=== PATIENT | female | born 1945 | race Two or more races ===

== ENCOUNTER 2017-08-07 12:37 | Inpatient (IN) | payer MEDICARE, OTHER ==
[~2017-08-07] VITALS: Ht 157.5 cm; Wt 70.8 kg
--- NOTE | 2017-08-07 12:40 | NUR ---
MAURISIO FROM [facility] ASSISTED LIVING FOR SOB, SPO2=95% ON RA. PATIENT IS A/OX 3. BREATHING EVEN AND UNLABORED AT THIS TIME. NO DISTRESS NOTED. VITALS REMAIN STABLE. SAFETY AND COMFORT MEASURES IN PLACE. AWAITING MD ORDERS.
--- NOTE | 2017-08-07 13:05 | NUR ---
NEW IV STARTED ON RAC, 20 G. BLOOD DRAWN AND SENT TO LAB.
[2017-08-07 13:12] LABS: BASOPHILS % (AUTO) 0.4 % (0.0-2.0); EOSINOPHILS # (AUTO) 0.1 /CMM (0.0-0.7); EOSINOPHILS % (AUTO) 1.2 % (0.0-6.0); HEMATOCRIT 36 % (33-45); HEMOGLOBIN 12.6 g/dL (11.5-14.8); LYMPHOCYTES # (AUTO) 2.5 /CMM (0.8-4.8); LYMPHOCYTES % (AUTO) 44.1 % (20.0-44.0); MEAN CORPUSCULAR HEMOGLOBIN 31 PG (26.0-33.0); MEAN CORPUSCULAR HGB CONC 35 g/dl (31.0-36.0); MEAN CORPUSCULAR VOLUME 89 fL (82-100); MONOCYTES # (AUTO) 0.6 /CMM (0.1-1.30); MONOCYTES % (AUTO) 11.5 % (2.0-12.0); NEUTROPHILS # (AUTO) 2.3 /CMM (1.8-8.9); NEUTROPHILS % (AUTO) 42.8 % (43.0-81.0); PLATELET COUNT (AUTO) 178 /CMM (150-450); RDW COEFFICIENT OF VARIATION 12.3 (11.5-15.0); RED BLOOD CELL COUNT(AUTO) 4.02 MIL/uL (4.0-5.2); WHITE BLOOD COUNT (AUTO) 5.5 K/uL (4.3-11.0)
[2017-08-07 13:22] LABS: CALCIUM, SERUM 9.2 mg/dL (8.5-10.1); CARBON DIOXIDE 25 mmol/L (21-32); CHLORIDE 111 mmol/L (98-107); CREATININE 1.3 mg/dL (0.6-1.3); GLUCOSE 108 mg/dL (74-106); POTASSIUM 4.5 mmol/L (3.5-5.1); SODIUM SERUM 143 mmol/L (136-145); UREA NITROGEN, BLOOD 24 mg/dL (7-18)
[2017-08-07 13:25] LABS: INR 0.89 (0.85-1.15)
--- NOTE | 2017-08-07 13:28 | NUR ---
CALLED [employer] RIP/MOULD OPERATOR WAS PAGED.
[2017-08-07 13:30] LABS: TROPONIN I < 0.017 ng/mL (0.00-0.056)
[2017-08-07] MEDS ORDERED: ALBUTEROL FS 2.5 MG/3 ML VIAL.NEB NEB ONE (13:30)
[2017-08-07] MEDS ORDERED: methylPREDNISolone SOD SUCC 125 MG/2ML VIAL IV ONE (13:30)
[2017-08-07] MEDS ORDERED: IPRATROPIUM NEB FS 0.5 MG/2.5 ML AMPUL.NEB NEB ONE (13:30)
[2017-08-07] MEDS ORDERED: ALBUTEROL FS 2.5 MG/3 ML VIAL.NEB ONE (13:32)
[2017-08-07] MEDS ORDERED: IPRATROPIUM NEB FS 0.5 MG/2.5 ML AMPUL.NEB ONE (13:32)
[2017-08-07] MEDS ORDERED: OMEP20CA10 PO (13:33)
[2017-08-07] MEDS ORDERED: LORA10TA7 PO (13:33)
[2017-08-07] MEDS ORDERED: POTA10TA15 PO (13:33)
[2017-08-07] MEDS ORDERED: MYRBETRIQ PO (13:33)
[2017-08-07] MEDS ORDERED: DIVA500T7 PO (13:33)
[2017-08-07] MEDS ORDERED: TOPI25TA49 PO (13:33)
[2017-08-07] MEDS ORDERED: FURO-145 PO (13:33)
[2017-08-07] MEDS ORDERED: CHOL100044 PO (13:33)
[2017-08-07] MEDS ORDERED: AZIT250T13 PO (13:33)
[2017-08-07] MEDS ORDERED: ROSU5TAB PO (13:33)
[2017-08-07] MEDS ORDERED: MAGN400T26 PO (13:33)
[2017-08-07] MEDS ORDERED: DIVA250T6 PO (13:33)
[2017-08-07] MEDS ORDERED: SENN-167 PO (13:33)
[2017-08-07] MEDS ORDERED: OLAN5TAB3 PO (13:33)
[2017-08-07] MEDS ORDERED: LISI10TA5 PO (13:33)
[2017-08-07] MEDS ORDERED: methylPREDNISolone SOD SUCC 125 MG/2ML VIAL ONE (13:39)
[2017-08-07 13:41] LABS: ALANINE AMINOTRANSFERASE 12 U/L (12-78); ALBUMIN 2.9 g/dL (3.4-5.0); ALKALINE PHOSPHATASE 64 U/L (46-116); ASPARTATE AMINOTRANSFERASE 18 U/L (15-37); B-TYPE NATRIURETIC PEPTIDE 227 PG/ML (0-125); BILIRUBIN,DIRECT 0.1 mg/dL (0.0-0.2); BILIRUBIN,TOTAL 0.2 mg/dL (0.2-1.0); TOTAL PROTEIN, SERUM 7.9 g/dL (6.4-8.2)
[2017-08-07] MEDS ORDERED: LEVOFLOXACIN 750 MG /D5W 150ML 150 ML IV ONE ×2 (13:51→14:00)
--- NOTE | 2017-08-07 13:53 | NUR ---
CALLED NURSING GEODETIC SURVEY DIRECTOR REQUESTING A BED
[2017-08-07] MEDS ORDERED: MAGNESIUM OXIDE 400 MG TABLET PO SCH (15:00)
[2017-08-07] MEDS ORDERED: LISINOPRIL (10MG) 10 MG TABLET PO SCH (15:00)
[2017-08-07] MEDS ORDERED: LEVOFLOXACIN 500 MG /D5W 100ML 500 MG in PREMIX 1 EA IV SCH (15:00)
[2017-08-07] MEDS ORDERED: CHOLECALCIFEROL 1,000 UNIT TABLET (VIT D3) PO SCH (15:00)
[2017-08-07] MEDS ORDERED: LORATADINE 10 MG TABLET PO SCH (15:00)
--- NOTE | 2017-08-07 15:07 | NUR ---
REPORT GIVEN TO LAILA SMITH FOR SARAH UPON ADMISSION.
[2017-08-07 15:30] VITALS: BP 126/72
[2017-08-07] MEDS ORDERED: BLOOD SUGAR DIAGNOSTIC 1 EACH STRIP IN SCH ×2 (15:30→18:00)
[2017-08-07] MEDS ORDERED: INSULIN REGULAR, HUMAN 100 UNIT/ML 3 ML VIAL SQ PRN (15:30)
[2017-08-07] MEDS ORDERED: DEXTROSE 50%-WATER 50 ML DISP.SYRIN IV PRN (15:30)
[2017-08-07] MEDS ORDERED: ASPIRIN EC 325 MG TABLET.DR PO SCH (15:30)
[2017-08-07] MEDS ORDERED: PANTOPRAZOLE 40 MG VIAL IV SCH (15:30)
--- NOTE | 2017-08-07 15:30 | NUR ---
PATIENT TRANSPORTED TO [facility] VIA ACLS PROTOCOL. RNLAILA TO PROVIDE SARAH.
--- NOTE | 2017-08-07 15:40 | NUR ---
MS SMITH AM NOTES RECEIVED PT FROM ER WITH DX OF COPD EXACERBATION.NO C/O SOB WITH O2 AT 2L/MIN VIA N/C.PT IS ALERT AND VERBALLY RESPONSIVE.AMBULATES TO THE BRP WITH ASSIST WITH SLOW STEADY GAIT.DENIES ANY PAIN OR DISTRESS.CALL LIGHT PLACED WITHIN REACH.
[2017-08-07 15:45] VITALS: BP 125/72
[2017-08-07] MEDS ORDERED: ENOXAPARIN SODIUM 40 MG/0.4 ML DISP.SYRIN SQ SCH (16:00)
[2017-08-07] MEDS ORDERED: IV NS 0.9% 1,000 ML IV PRN (16:30)
[2017-08-07] MEDS ORDERED: ACETAMINOPHEN 325 MG TABLET PO PRN ×2 (16:30→17:30)
[2017-08-07] MEDS ORDERED: IPRATROPIUM NEB FS 0.5 MG/2.5 ML AMPUL.NEB NEB PRN ×2 (16:30→17:30)
[2017-08-07] MEDS ORDERED: ALBUTEROL FS 2.5 MG/3 ML VIAL.NEB NEB PRN ×2 (16:30→17:30)
--- NOTE | 2017-08-07 16:59 | NUR ---
PER DR. PLUMMER TO STOP ALL HIS ORDERS, PT UNDER DR. FERNANDES CARE, DR. PLUMMER WILL INFORM DR HENRY.
[2017-08-07] MEDS ORDERED: TOPIRAMATE 25 MG TABLET PO SCH (17:00)
[2017-08-07] MEDS: PANTOPRAZOLE 40 MG TABLET.DR PO SCH (17:35)
[2017-08-07] MEDS: ENOXAPARIN SODIUM 40 MG/0.4 ML DISP.SYRIN SQ SCH (17:36)
[2017-08-07] MEDS ORDERED: DIVALPROEX SODIUM 500 MG TABLET.DR PO SCH (18:00)
[2017-08-07] MEDS: IV NS 0.9% 1,000 ML IV PRN (18:23)
[2017-08-07 18:45] LABS: APPEARANCE,URINE CLEAR (CLEAR); BILIRUBIN,URINE NEGATIVE (NEGATIVE); BLOOD, URINE NEGATIVE Ery/uL (NEGATIVE); COLOR,URINE YELLOW (YELLOW); KETONES,URINE NEGATIVE (NEGATIVE); LEUKOCYTE ESTERASE ,URINE NEGATIVE (NEGATIVE); NITRITE, URINE NEGATIVE (NEGATIVE); PROTEIN,URINE NEGATIVE (NEGATIVE); UGLUCOSE NEGATIVE (NEGATIVE); UROBILINOGEN,URINE 0.2 EU/dL (0.2)
--- NOTE | 2017-08-07 18:56 | NUR ---
RN NOTE: PATIENT ALERT AND ORIENTED X 3. PATIENT IS AMBULATORY, CAN WALK TO BATHROOM WITH MINIMAL ASSISTANCE. RESPIRATIONS UNLABORED AND EVEN. IV TUBING INTACT. NO PAIN REPORTED. NO ACUTE DISTRESS. BED LOCKED, SIDE RAILS X2 UP, BED IN LOWEST POSITION FOR SAFETY.
--- NOTE | 2017-08-07 19:30 | NUR ---
MS SARAH WHEAT NOTES: PATIENT IN BED, AOX4, ON O2 AT 2 LPM VIA NC, BREATHING EVEN AND UNLABORED, NO SOB. BREATH SOUNDS CLEAR TO AUSCULTATION. PIV OVER RAC G 20 INTACT AND PATENTLY INFUSING WITH NS RUNNING AT 75 ML/HR. MAINTAINED HOB ELEVATED. PROVIDED FOR COMFORT AND SAFETY. BED IN LOWEST AND LOCKED POSITION, SIDERAILS UP X 3, CALL LIGHT WITHIN REACH. WILL CONT TO MONITOR.
[2017-08-07] MEDS: IPRATROPIUM NEB FS 0.5 MG/2.5 ML AMPUL.NEB NEB SCH (19:54)
[2017-08-07] MEDS: ALBUTEROL FS 2.5 MG/0.5 ML VIAL.NEB NEB SCH (19:54)
[2017-08-07 20:00] VITALS: BP 113/61
[2017-08-07] MEDS: methylPREDNISolone SOD SUCC 40 MG/ML VIAL IV SCH (20:52)
[2017-08-07] MEDS ORDERED: methylPREDNISolone SOD SUCC 40 MG/ML VIAL IV SCH (21:00)
[2017-08-07] MEDS ORDERED: SENNOSIDES 8.6 MG TABLET PO SCH (22:00)
[2017-08-07] MEDS ORDERED: OLANZAPINE 5 MG TABLET PO SCH (22:00)
[2017-08-08] VITALS: BP 117/62
[2017-08-08] MEDS: methylPREDNISolone SOD SUCC 40 MG/ML VIAL IV SCH ×3 (05:55→21:20)
--- NOTE | 2017-08-08 06:44 | NUR ---
MS RN CLOSING NOTES: PATIENT IN BED, AOX4, ON O2 AT 2 LPM VIA NC, BREATHING EVEN AND UNLABORED. APPEARS CALM AND IN NO DISTRESS. PIV OVER RAC G 20 INTACT AND PATENT, INFUSING WELL WITH NS RUNNING AT 75 ML/HR. DUE MEDS GIVEN. PROVIDED FOR COMFORT AND SAFETY. BED IN LOWEST AND LOCKED POSITION, SIDERAILS UP X 3. CALL LIGHT WITHIN REACH. WILL ENDORSE TO AM RN FOR SARAH.
[2017-08-08] MEDS: IV NS 0.9% 1,000 ML IV PRN (06:55)
[2017-08-08] MEDS: PANTOPRAZOLE 40 MG TABLET.DR PO SCH (06:55)
[2017-08-08] MEDS ORDERED: PANTOPRAZOLE 40 MG TABLET.DR PO SCH (07:30)
[2017-08-08 07:40] LABS: BASOPHILS % (AUTO) 0.1 % (0.0-2.0); HEMATOCRIT 33 % (33-45); HEMOGLOBIN 11.2 g/dL (11.5-14.8); LYMPHOCYTES # (AUTO) 1.1 /CMM (0.8-4.8); LYMPHOCYTES % (AUTO) 17.5 % (20.0-44.0); MEAN CORPUSCULAR HEMOGLOBIN 31 PG (26.0-33.0); MEAN CORPUSCULAR HGB CONC 34 g/dl (31.0-36.0); MEAN CORPUSCULAR VOLUME 91 fL (82-100); MONOCYTES # (AUTO) 0.4 /CMM (0.1-1.30); MONOCYTES % (AUTO) 6.3 % (2.0-12.0); NEUTROPHILS # (AUTO) 4.9 /CMM (1.8-8.9); NEUTROPHILS % (AUTO) 76.1 % (43.0-81.0); PLATELET COUNT (AUTO) 162 /CMM (150-450); RDW COEFFICIENT OF VARIATION 13.1 (11.5-15.0); WHITE BLOOD COUNT (AUTO) 6.4 K/uL (4.3-11.0)
[2017-08-08 07:50] LABS: CARBON DIOXIDE 22 mmol/L (21-32); CHLORIDE 112 mmol/L (98-107); CREATININE 1.3 mg/dL (0.6-1.3); GLUCOSE 124 mg/dL (74-106); POTASSIUM 4.3 mmol/L (3.5-5.1); SODIUM SERUM 144 mmol/L (136-145); UREA NITROGEN, BLOOD 26 mg/dL (7-18)
[2017-08-08 08:00] VITALS: BP 119/72
--- NOTE | 2017-08-08 08:00 | NUR ---
RN NOTES RECEIVED PATIENT IN THE BED RESTING ON O2 -2L NC, NO ACUTE RESPIRATORY DISTRESS. STABLE, PATIENT A/O X3/4, NO C/O PAIN AT THIS TIME, IV LINE ON RIGHT AC AREA INFUSING NS AT 75 ML/HR INTACT, PT AMBULATORY WITH ASSIST USING BED SIDE COMMODE OR BRP WITH WALKER, NEEDS ATTENDED AND ,ANTICIPATED, CALL LIGHT WITHIN TO REACH, CONTINUED MONITORING.
[2017-08-08] MEDS: ALBUTEROL FS 2.5 MG/0.5 ML VIAL.NEB NEB SCH ×3 (08:02→19:44)
[2017-08-08] MEDS: IPRATROPIUM NEB FS 0.5 MG/2.5 ML AMPUL.NEB NEB SCH ×3 (08:02→19:44)
[2017-08-08] MEDS ORDERED: DIVALPROEX SODIUM 250 MG TABLET.DR PO SCH (09:00)
--- NOTE | 2017-08-08 13:00 | NUR ---
RN NOTES ASSIST PATIENT BATHROOM, NO ACUTE DISTRESS, NO RESPIRATORY DISTRESS, V/S STABLE. NEEDS ATTENDED AND ANTICIPATED, SAFETY PRECAUTION MAINTAINED ALL THE TIME.
--- NOTE | 2017-08-08 13:45 | NUR ---
Gate Manager Consult was requested by Dr. Au regarding stroke. Pt is 72 year old female who was admitted to [facility] for exacerbation of her asthma. SW met with pt. at her bedside. Patient is oriented x4. Patient was very open to assessment from SW. Patient currently resides at an assisted living called [facility] ([address] [place] [address]). The pt.s emergency contact is her son Mike ([phone]). Patient denies use of cigarettes, alcohol, and drugs. The pt reported that she has had been diagnosed with Bipolar disorder, but has been cleared. Pt reports that Dr. Neal Sr (psychiatrist) sees patient at her assisted living and Dr. Kusum Wen (). Pt reports that she had been hospitalized for a couple months when she was 27 years old for depression at [facility]. Pt denies any suicidal and homicidal ideation. SW offered pt. referrals and resources however, patient declined. LIVIA spoke with SARAH Santana in regards to patients disposition and reported to her that the pt. declined referrals. Plan: When pt. is stable he will be discharged back to her assisted living ([facility]- [address] [place] [address]). Pt reports that she does not anticipate problems with transportation.
[2017-08-08 16:00] VITALS: BP 105/50
[2017-08-08] MEDS ORDERED: LEVOFLOXACIN 500 MG /D5W 100ML 500 MG in PREMIX 1 EA IV SCH (16:00)
[2017-08-08] MEDS: LEVOFLOXACIN 250 MG /D5W 50 ML 250 MG in PREMIX 1 EA IV SCH (16:34)
--- NOTE | 2017-08-08 18:30 | NUR ---
RN NOTES PATIENT IN THE BED EATING, PATIENT HAS A BILATERAL HEARING AIDS, NO C/O DIZZINESS, NO ACUTE SOB, CALL LIGHT WITHIN TO REACH, INFUSING NS AT 75 ML HR INTACT. CONTINUED MONITORING. ENDORSED ONCOMING NURSE FOR SARAH.
--- NOTE | 2017-08-08 19:15 | NUR ---
MS/RN NOTES RECEIVED PT. LYING IN BED. AWAKE, ALERT AND ORIENTED X3. BREATHING EVEN AND UNLABORED ON 2LPM O2 VIA NC. NO SOB, RESPIRATORY DISTRESS OR COMPLAINTS OF PAIN NOTED AT THIS TIME. PT. WITH BILATERAL HEARING AIDS PRESENT AND INTACT. PT. WITH RIGHT AC 20 GAUGE PERIPHERAL IV PRESENT, PATENT AND INTACT ADMINISTERING TO PT. NS @ 75ML/HR. EDUCATED PT. ON CALLING FOR ASSISTANCE BEFORE AMBULATING. PT. VERBALIZED UNDERSTANDING. BED LOCKED AND IN LOWEST POSITION, SIDE RAILS UP X3, BED ALARM ON, CALL LIGHT WITHIN REACH, WILL CONTINUE TO MONITOR.
--- NOTE | 2017-08-08 19:34 | NUR ---
Patient resides at [facility] [phone] [place] [address]. Prior to admission she was ambulatory and independent with adl's . She owns a walker but does not use it.She plan to return back to [facility] once discharge. Addendum: 08/08/17 at 1934 by SHDA BULLARD RN Amended: Links added.
[2017-08-08 20:00] VITALS: BP 105/63
[2017-08-08] MEDS: ENOXAPARIN SODIUM 40 MG/0.4 ML DISP.SYRIN SQ SCH (21:21)
[2017-08-08] MEDS ORDERED: ATORVASTATIN 10 MG TABLET PO SCH (22:00)
[2017-08-09] MEDS: methylPREDNISolone SOD SUCC 40 MG/ML VIAL IV SCH ×2 (05:19→20:49)
[2017-08-09] MEDS: IV NS 0.9% 1,000 ML IV PRN (05:40)
--- NOTE | 2017-08-09 06:45 | NUR ---
MS/RN NOTES PT. IS LYING IN BED RESTING. BREATHING EVEN AND UNLABORED ON 2LPM O2 VIA NC. NO SOB, RESPIRATORY DISTRESS OR COMPLAINTS OF PAIN NOTED AT THIS TIME. PT. WITH RIGHT AC 20 GAUGE PERIPHERAL IV PRESENT, PATENT AND INTACT ADMINISTERING TO PT. NS @ 75ML/HR. ALL PT. NEEDS MET. BED LOCKED AND IN LOWEST POSITION, SIDE RAILS UP X3, BED ALARM ON, CALL LIGHT WITHIN REACH, WILL ENDORSE TO DAYSHIFT NURSE FOR CONTINUITY OF CARE.
--- NOTE | 2017-08-09 07:15 | NUR ---
MS RN OPENING NOTES RECEIVED PT FROM NIGHTSHIFT NURSE IN STABLE CONDITION. PT IS A/O X3. NO SOB OR SIGNS OF DISTRESS NOTED. BREATHING IS EVEN AND UNLABORED. PT IS ON 2L VIA NC AND SATING WELL @95%. IV ON RIGHT AC NOTED TO BE PATENT AND INTACT. NO REDNESS OR SIGNS OF INFILTRATION NOTED. BED IN LOW LOCKED POSITION, SIDE RAILS UP X2, CALL LIGHT WITHIN REACH. WILL CONTINUE TO MONITOR.
[2017-08-09 07:17] LABS: BASOPHILS % (AUTO) 0.2 % (0.0-2.0); HEMATOCRIT 32 % (33-45); HEMOGLOBIN 10.8 g/dL (11.5-14.8); LYMPHOCYTES # (AUTO) 1.4 /CMM (0.8-4.8); LYMPHOCYTES % (AUTO) 12.8 % (20.0-44.0); MEAN CORPUSCULAR HEMOGLOBIN 31 PG (26.0-33.0); MEAN CORPUSCULAR HGB CONC 34 g/dl (31.0-36.0); MEAN CORPUSCULAR VOLUME 91 fL (82-100); MONOCYTES # (AUTO) 0.4 /CMM (0.1-1.30); MONOCYTES % (AUTO) 4.2 % (2.0-12.0); NEUTROPHILS # (AUTO) 8.8 /CMM (1.8-8.9); NEUTROPHILS % (AUTO) 82.8 % (43.0-81.0); PLATELET COUNT (AUTO) 168 /CMM (150-450); RDW COEFFICIENT OF VARIATION 13.3 (11.5-15.0); RED BLOOD CELL COUNT(AUTO) 3.47 MIL/uL (4.0-5.2); WHITE BLOOD COUNT (AUTO) 10.6 K/uL (4.3-11.0)
[2017-08-09 07:39] LABS: CALCIUM, SERUM 8.9 mg/dL (8.5-10.1); CARBON DIOXIDE 20 mmol/L (21-32); CHLORIDE 112 mmol/L (98-107); CREATININE 1.3 mg/dL (0.6-1.3); GLUCOSE 148 mg/dL (74-106); POTASSIUM 4.2 mmol/L (3.5-5.1); SODIUM SERUM 144 mmol/L (136-145); UREA NITROGEN, BLOOD 34 mg/dL (7-18)
[2017-08-09] MEDS: IPRATROPIUM NEB FS 0.5 MG/2.5 ML AMPUL.NEB NEB SCH ×3 (07:57→19:29)
[2017-08-09] MEDS: ALBUTEROL FS 2.5 MG/0.5 ML VIAL.NEB NEB SCH ×3 (07:57→19:28)
[2017-08-09 08:00] VITALS: BP 112/56
[2017-08-09] MEDS: PANTOPRAZOLE 40 MG TABLET.DR PO SCH (08:27)
[2017-08-09] MEDS: LEVOFLOXACIN 250 MG /D5W 50 ML 250 MG in PREMIX 1 EA IV SCH (15:04)
[2017-08-09 16:00] VITALS: BP 106/58
--- NOTE | 2017-08-09 18:37 | NUR ---
MS RN CLOSING NOTES PT REMAINS IN STABLE CONDITION. ALL NEEDS WERE MET DURING SHIFT AND ORDERS CARRIED OUT ACCORDINGLY. ALL CLARICE MEDS GIVEN. PT WAS REPOSITION AND TURNED PER HOSPITAL PROTOCOL. NO ACUTE CHANGES IN CONDITION THROUGHOUT SHIFT. VITALS REMAINED STABLE. PT REMAIN SON 2L O2 AND SATING WELL BETWEEN 92-95%. BREATHING REMAINS EVEN AND UNLABORED. SAFETY MEASURES REMAIN IN PLACE. WILL ENDORSE TO NIGHTSHIFT NURSE FOR SARAH
--- NOTE | 2017-08-09 19:20 | NUR ---
RECEIVED PATIENT AWAKE, ALERT AND ORIENTED X 3, CALM, COMFORTABLE, NO SOB, NO ACUTE DISTRESS, BREATHING EVEN AND UNLABORED, NO S/S OF PAIN AND DISCOMFORT, ON O2 AT 2LPM AND TOLERATED WELL. O2 SAT 93%. KEPT CLEAN, DRY AND COMFORTABLE, ALL NEEDS ATTENDED AND MET, WILL CONTINUE TO MONITOR Addendum: 08/09/17 at 2309 by VERENICE MTZ II, RN IV SITE ON RIGHT AC NOTED PATENT AND INTACT. NO S/S OF INFILTRATION. BED IN LOW LOCKED POSITION, SIDE RAILS UP X2, CALL LIGHT WITHIN REACH. WILL CONTINUE TO MONITOR.
[2017-08-09 20:00] VITALS: BP 113/58
[2017-08-09] MEDS: ENOXAPARIN SODIUM 40 MG/0.4 ML DISP.SYRIN SQ SCH (20:53)
--- NOTE | 2017-08-10 00:10 | NUR ---
PATIENT C/O NO BM FOR THE LAT 2 DAYS, ABDOMEN SOFT AND NON DISTENDED, PRUNE JUICE GIVEN. WILL CONTINUE TO MONITOR
[2017-08-10] MEDS: PANTOPRAZOLE 40 MG TABLET.DR PO SCH (06:50)
--- NOTE | 2017-08-10 06:53 | NUR ---
MEDSURG NOTES: PATIENT STABLE, NO SOB, NO ACUTE DISTRESS, BREATHING EVEN AND UNLABORED, NO S/S OF PAIN AND DISCOMFORT, NO BM NOTED, WILL CONTINUE TO MONITOR. ENDORSED
--- NOTE | 2017-08-10 07:19 | NUR ---
RN OPEN NOTES RECEIVED REPORT FROM BRAILLE TEACHER NURSE. WILL CONTINUE TO MONITOR AND ASSESS PATIENT
[2017-08-10] MEDS: IPRATROPIUM NEB FS 0.5 MG/2.5 ML AMPUL.NEB NEB SCH ×3 (07:21→19:41)
[2017-08-10] MEDS: ALBUTEROL FS 2.5 MG/0.5 ML VIAL.NEB NEB SCH ×3 (07:22→19:41)
[2017-08-10 08:00] VITALS: BP 118/58
[2017-08-10] MEDS: methylPREDNISolone SOD SUCC 40 MG/ML VIAL IV SCH (08:15)
[2017-08-10] MEDS: DOCUSATE SODIUM 100 MG CAPSULE PO SCH ×2 (11:26→17:50)
[2017-08-10] MEDS: predniSONE 20 MG TABLET PO SCH (11:26)
--- NOTE | 2017-08-10 14:04 | NUR ---
GAVE REPORT TO ANNMARIE FOR SARAH
--- NOTE | 2017-08-10 14:10 | NUR ---
RECEIVED SBAR REPORT FROM LINDY FOR [facility]. WILL ASSESS/MONITOR THE PATIENT THROUGHOUT THE SHIFT.
[2017-08-10] MEDS: LEVOFLOXACIN 250 MG /D5W 50 ML 250 MG in PREMIX 1 EA IV SCH (15:09)
[2017-08-10 16:00] VITALS: BP 120/74
[2017-08-10] MEDS: TOPIRAMATE 25 MG TABLET PO SCH (17:51)
[2017-08-10] MEDS ORDERED: DIVALPROEX SODIUM 500 MG TABLET.DR PO SCH (18:00)
--- NOTE | 2017-08-10 18:48 | NUR ---
PATIENT IS IN BED, A/O X3, AWAKE AND RESPONSIVE. BED IS LOCKED IN LOWEST POSITION, SIDE RAILS UP X3. CALL LIGHT WITHIN REACH. WALKER AT THE BEDSIE. PATIENT IS AMBULATORY WITH WALKER AND ORIENTED TO OWN ABILITIES. DENIES PAIN DISCOMFORT AT THIS TIME. PATIENT IN 2L OXYGEN VIA NC SATURATING 96%. CHEST RISING EQUALLY/BILATERALLY. ALL NEEDS ARE MET. ALL DUE MEDICATIONS ADMINISTERED. WILL ENDORSE TO THE BUSINESS SOLUTIONS ARCHITECT NURSE FOR SARAH.
--- NOTE | 2017-08-10 19:47 | NUR ---
MS RN OPENING NOTES RECEIVED PT SITTING UPRIGHT IN BED. AWAKE AND RESPONSIVE. RESPIRATIONS ARE EVEN AND UNLABORED, NOT IN ANY ACUTE DISTRESS AT THIS TIME. DENIES ANY CHEST PAIN, N/V. IV SITE INTACT, DRESSING KEPT CLEAN AND DRY. SAFETY MEASURES ARE IN PLACE. BED IS IN ITS LOW AND LOCKED POSITION. WILL CONTINUE TO MONITOR THROUGHOUT SHIFT.
[2017-08-10 20:00] VITALS: BP 125/66
[2017-08-10 20:01] VITALS: BP 125/66
[2017-08-10] MEDS: ENOXAPARIN SODIUM 40 MG/0.4 ML DISP.SYRIN SQ SCH (21:29)
[2017-08-10] MEDS ORDERED: SENNOSIDES 8.6 MG TABLET PO SCH (22:00)
[2017-08-10] MEDS ORDERED: OLANZAPINE 5 MG TABLET PO SCH (22:00)
[2017-08-10] MEDS ORDERED: ATORVASTATIN 10 MG TABLET PO SCH (22:00)
--- NOTE | 2017-08-11 06:47 | NUR ---
MS RN CLOSING NOTES ALL DUE MEDS GIVEN, NEEDS MET AND RENDERED. AWAKE AND RESPONSIVE. RESPIRATIONS ARE EVEN AND UNLABORED, NOT IN ANY ACUTE DISTRESS NOTED. DENIES ANY PAIN, NO SOB, N/V. IV SITE INTACT, DRESSING KEPT CLEAN AND DRY. PT ABLE TO REPOSITION SELF TO USING SIDERAILS. SAFETY MEASURES ARE IN PLACE. BED IS IN ITS LOW AND LOCKED POSITION. WILL ENDORSE TO NEXT SHIFT FOR CONTINUITY OF CARE.
--- NOTE | 2017-08-11 07:30 | NUR ---
RN MS NOTES PT IN BED, AWAKE, ALERT AND ORIENTED, VERBALLY RESPONSIVE, NO SHORTNESS OF BREATH, NO COMPLAINT OF PAIN OR ANY DISCOMFORT, CALL LIGHT WITHIN REACH, KEPT WARM AND COMFORTABLE IN BED.
[2017-08-11] MEDS: IPRATROPIUM NEB FS 0.5 MG/2.5 ML AMPUL.NEB NEB SCH ×2 (07:55→13:30)
[2017-08-11] MEDS: ALBUTEROL FS 2.5 MG/0.5 ML VIAL.NEB NEB SCH ×2 (07:55→13:30)
[2017-08-11 08:00] VITALS: BP 113/60
[2017-08-11] MEDS: DOCUSATE SODIUM 100 MG CAPSULE PO SCH (08:20)
[2017-08-11] MEDS: predniSONE 20 MG TABLET PO SCH (08:20)
[2017-08-11] MEDS: PANTOPRAZOLE 40 MG TABLET.DR PO SCH (08:20)
[2017-08-11] MEDS: TOPIRAMATE 25 MG TABLET PO SCH (08:20)
[2017-08-11 09:00] VITALS: BP 113/60
[2017-08-11] MEDS ORDERED: LISINOPRIL (10MG) 10 MG TABLET PO SCH (09:00)
[2017-08-11] MEDS ORDERED: DIVALPROEX SODIUM 250 MG TABLET.DR PO SCH (09:00)
--- NOTE | 2017-08-11 11:55 | NUR ---
RN MS NOTES PT IN BED, AWAKE, ALERT AND ORIENTED, NO COMPLAINT OF PAIN, BREATHING PATTERN NORMAL, TOLERATING ROOM AIR WELL, SEEN BY DR. HENRY, DISCHARGE ORDER GIVEN, DISCHARGE AND MEDICATION INSTRUCTIONS PROVIDED TO PT, VERBALIZED UNDERSTANDING, [facility]AL [facility] INFORMED OF PT'S DISCHARGE ORDER, AWAITING AMBULANCE REEL FILM INSPECTOR, PT ABLE TO AMBULATE WITH STEADY GAIT USING A WALKER, NEEDS ATTENDED.
--- NOTE | 2017-08-11 14:57 | NUR ---
RN MS NOTES PT AWAKE, SITTING IN BED, NO COMPLAINT OF PAIN OR DISCOMFORT, RESPIRATIONS NORMAL AND NOT LABORED, TOLERATING ROOM AIR WELL, O2 SAT OF 93% ON ROOM AIR, BELONGINGS ACCOUNTED FOR, PICKED UP BY 2 AMBULANCE PERSONNEL, LEFT IN STABLE CONDITION VIA GUERNEY.
== END 2017-08-11 14:55 | DRG 202 ==
LOC: ER 12:38 → TELE 14:51 → MED 08-08 00:04
PROVIDERS: ADMIT Legal Medicine; ATTEND Legal Medicine
DX: J45.901 Unspecified asthma with (acute) exacerbation (principal); J44.0 Chronic obstructive pulmonary disease with (acute) lower respiratory infection; J44.1 Chronic obstructive pulmonary disease with (acute) exacerbation; F32.9 Major depressive disorder, single episode, unspecified; I10 Essential (primary) hypertension; M19.90 Unspecified osteoarthritis, unspecified site; J20.9 Acute bronchitis, unspecified; Z79.899 Other long term (current) drug therapy; K21.9 Gastro-esophageal reflux disease without esophagitis; K59.00 Constipation, unspecified
CPT/HCPCS: 36415; 71045-TC; 80048-TC; 80076-TC; 80305; 81000-TC; 83605-TC; 83735-TC; 83880; 84484-TC; 85025-TC; 85730-TC; 87040-TC; 87081-TC; 87400; 94799-TC; A4216; A4606; C9113; J1650; J1815; J1956; J2920; J2930; J7030; Z7610